=== PATIENT | male | born 1985 | race Hispanic/Latino ===

== ENCOUNTER 2018-08-23 05:48 | Emergency (ER) | payer OTHER ==
[2018-08-23] MEDS ORDERED: TETRACAINE 0.5% OU ONE (09:45)
--- NOTE | 2018-08-23 10:13 | Emergency Department Report ---
Eye Injury/Foreign Body - HPI Duration: 2 Days Eye Location: Left Severity: Moderate Tetanus Status: Up to Date Eye Symptoms: Eye Pain: Yes, Blurred Vision: No, Eye Redness: Yes, Grinding/Hammering Metal: Yes, Used Eye Protection: No, Contact Lens Use: No, Recalls Injury: Yes, Photophobia: No ED Review of Systems ROS: Stated complaint: LT EYE REDNESS Other details as noted in HPI Comment: All other systems reviewed and negative ED Past Medical Hx - Past Medical History Previous Medical History?: No - Surgical History Past Surgical History?: No - Social History Smoking Status: Never Smoker Substance Use Type: None - Medications Home Medications: Home Medications Medication Instructions Recorded Confirmed Last Taken Type Gentamicin 0.3% Ophth Soln 2 drops OP Q4H #1 bottle 08/23/18 Unknown Rx HYDROcodone/APAP 5-325 [Agness 1 each PO Q6HR PRN #14 tablet 08/23/18 Unknown Rx 5/325] Ibuprofen [Motrin 600 MG tab] 600 mg PO Q8H PRN #20 tablet 08/23/18 Unknown Rx Naphazoline HCl/Pheniramine 2 drop OS BID #1 bottle 08/23/18 Unknown Rx [Naphcon-A Eye Drops] Eye Injury Exam - Exam General: Vital signs noted. No distress. Alert and acting appropriately. Patient with a very small rust ring over the pupil on his left eye. Extra ocular movements are intact. Vision is intact. ED Course Vital Signs 08/23/18 05:52 Temperature 98.0 F Pulse Rate 58 L Respiratory 18 Rate Blood Pressure 125/73 O2 Sat by Pulse 98 Oximetry ED Medical Decision Making - Medical Decision Making I was able to numb the patient's eye with tetracaine. Did take a 18-gauge needle to see if I could remove some of the rust ring at [place] adhered very tightly to the cornea. Patient referred to ophthalmology. Patient given meds for symptomatically. Critical care attestation.: If time is entered above; I have spent that time in minutes in the direct care of this critically ill patient, excluding procedure time. ED Disposition Clinical Impression: Corneal rust ring of left eye Cornea abrasion Qualifiers: Encounter type: initial encounter Laterality: left Qualified Code(s): S05.02XA - Injury of conjunctiva and corneal abrasion without foreign body, left eye, initial encounter Disposition: DC- TO HOME OR SELFCARE Is pt being admited?: No Does the pt Need Aspirin: No Condition: Stable Instructions: Corneal Abrasion (ED) Referrals: GERMÁN KNIGHT MD [Staff Physician] - 3-5 Days Time of Disposition: 10:13
[2018-08-23 10:50] VITALS: BP 112/64
== END 2018-08-23 10:51 | disposition home or self-care (01) ==
LOC: ED 05:48
DX: S05.02XA Injury of conjunctiva and corneal abrasion without foreign body, left eye, initial encounter (principal); H18.892 Other specified disorders of cornea, left eye; Z91.030 Bee allergy status; Z91.048 Other nonmedicinal substance allergy status; X58.XXXA Exposure to other specified factors, initial encounter; Y93.89 Activity, other specified; Y92.89 Other specified places as the place of occurrence of the external cause; Y99.8 Other external cause status